=== PATIENT | female | born 1940 | race Caucasian/White ===

== ENCOUNTER 2021-09-20 09:09 | Inpatient (IN) | payer OTHER ==
[~2021-09-20] VITALS: Ht 160 cm; Wt 50.3 kg
--- NOTE | ~2021-09-20 | EMS ---
[place] [address] EMS Patient Care Report Name: JAYCOB HARMAN Room #: PRE M.R.#: [id number] Admission: Attend Phys: Discharge: Date of : 44 Report #: [id number] THIS REPORT FOR: //name// Report Transmitted: 09/20/2021 09:21 EMS Care Summary [place], [place]/[facility] Incident [id number] @ 09/20/2021 08:30 Incident Location [address] [place] Patient JAYCOB HARMAN Female, 81 Years 1940 Patient Address [address] [place] [address] Patient History Cancer, Unspecified,Hypertension (HTN),Depression, Patient Allergies No known allergies, Patient Medications Atorvastatin, Eliquis, Zofran, Acetaminophen, Chief Complaint SOA Disposition Transported No Lights/[place] Dispatch Reason Breathing Problem Transported To [facility] Narrative RESPONDED TO BREATHING PROBLEMS AT CORRECTION. UPON ARRIVAL PT FOUND STANDING OUTSIDE WITH P37 CREW. PT IS ALERT AND ORIENTED BUT WINDED WHEN SPEAKING SENTENCES. PT SAT ON COT AND SEATBELTS APPLIED. PT PLACED ON O2 [place] 6[place] [address] EMS Patient Care Report Name: JAYCOB HARMAN Room #: [facility] Luis Fernando#: [id number] Admission: Attend Phys: Discharge: Date of : 44 Report #: [id number] PT VITALS, IV AND 3LEAD OBTAINED. PT INITIALLY SAT 88 ON ROOM AIR AND INCREASED WITH O2. PT REPORTS FEELING SOA SINCE LAST NIGHT. PT REPORTS SOME RELIEF WITH O2 NC ON. PT TRANSPORTED TO [facility] DESPITE HIGH VOLUME STATUS AND PT BEING INFORMED OF HIGH VOLUME STATUS. PT TEAM LIFTED TO BED AND HANDRAILS UP. REPORT GIVEN TO NURSE. Initial Vitals @08:49P: 134, @08:47P: 132,CO: 1,SpO2: 88, @08:53P: 147,CO: 1,SpO2: 95, @08:51P: 146,CO: 3,SpO2: 98, @08:48P: 135,CO: 4,SpO2: 91, @08:53P: 121,R: 20,BP: 170/117,Pain: 0/10,GCS: 15,Glucose: 189,SpO2: 100,Revised Trauma: 12, @08:48P: 144,R: 20,BP: 196/138,CO: 2,SpO2: 92, @08:57P: 133, @08:56P: 142,R: 20,BP: 156/131,CO: 0,SpO2: 100, Assessments @08:45MENTAL:Time Oriented,Event Oriented,Place Oriented,Person Oriented,SKIN:HEENT:Head/Face: No Abnormalities,Neck/Airway: No Abnormalities,LUNG SOUNDS:General: No Abnormalities,Left Upper: No Abnormalities,Right Upper: No Abnormalities,Left Lower: No Abnormalities,Right Lower: No Abnormalities,ABDOMEN:General: No Abnormalities,Left Upper: No Abnormalities,Right Upper: No Abnormalities,Left Lower: No Abnormalities,Right Lower: No Abnormalities,PELVIS//GI:No Abnormalities,EXTREMITIES:Left Arm: No Abnormalities,Right Arm: No Abnormalities,Left Leg: No Abnormalities,Right Leg: No Abnormalities,PULSE:NEURO:@08:51MENTAL:Time Oriented,Event Oriented,Place Oriented,Person Oriented,SKIN:HEENT:Head/Face: No Abnormalities,Eyes: No Abnormalities,Neck/Airway: No Abnormalities,LUNG SOUNDS:General: No Abnormalities,Left Upper: No Abnormalities,Right Upper: No Abnormalities,Left Lower: No Abnormalities,Right Lower: No Abnormalities,ABDOMEN:General: No Abnormalities,Left Upper: No Abnormalities,Right Upper: No Abnormalities,Left Lower: No Abnormalities,Right Lower: No Abnormalities,PELVIS//GI:No Abnormalities,EXTREMITIES:Left Arm: No Abnormalities,Right Arm: No Abnormalities,Left Leg: No Abnormalities,Right Leg: No Abnormalities,PULSE:NEURO:No Abnormalities, Impression Shortness of breath Procedures @08:51 IV Therapy - Saline Lock 5cc (20 ga) Site: Antecubital-Left Response: UnchangedSucceeded @08:45 ALS Assessment Response: UnchangedSucceeded @08:50 3-Lead ECG Response: UnchangedSucceeded [address] [address] EMS Patient Care Report Name: JAYCOB HARMAN [facility].RPurnima#: [id number] Admission: Attend Phys: Discharge: Date of : 44 Report #: [id number] Timeline 08:28,Call Received 08:28,Dispatch Notified 08:30,Dispatched 08:31,En Route 08:39,On Scene 08:45,At Patient 08:45,ALS Assessment,Response: UnchangedSucceeded, 08:47,BP: / M,PULSE: 132,RR: R,SPO2: 88 Ox,ETCO2: ,BG: ,PAIN: ,GCS: , 08:48,BP: 196/138 M,PULSE: 144,RR: 20 R,SPO2: 92 Ox,ETCO2: ,BG: ,PAIN: ,GCS: , 08:48,BP: / M,PULSE: 135,RR: R,SPO2: 91 Ox,ETCO2: ,BG: ,PAIN: ,GCS: , 08:49,BP: / M,PULSE: 134,RR: R,SPO2: Ox,ETCO2: ,BG: ,PAIN: ,GCS: , 08:50,3-Lead ECG,Response: UnchangedSucceeded, 08:51,BP: / M,PULSE: 146,RR: R,SPO2: 98 Ox,ETCO2: ,BG: ,PAIN: ,GCS: , 08:51,IV Therapy - Saline Lock 5cc 20 ga Site: Antecubital-Left,Response: UnchangedSucceeded, 08:53,BP: / M,PULSE: 147,RR: R,SPO2: 95 Ox,ETCO2: ,BG: ,PAIN: ,GCS: , 08:53,BP: 170/117 M,PULSE: 121,RR: 20 R,SPO2: 100 Ox,ETCO2: ,B,PAIN: 0,GCS: 15, 08:54,Depart Scene 08:56,BP: 156/131 M,PULSE: 142,RR: 20 R,SPO2: 100 Ox,ETCO2: ,BG: ,PAIN: ,GCS: , 08:57,BP: / M,PULSE: 133,RR: R,SPO2: Ox,ETCO2: ,BG: ,PAIN: ,GCS: , 09:05,At Destination 09:21,Call Closed Disclaimer v1.1 Copyright 2020 [employer] This EMS Care Summary contains data elements from the applicable legal record (which may be displayed differently). It is designed to provide pertinent information for the following purposes: continuity of care, clinical quality, and state data reporting. The complete legal record is available to ED staff and administrators of the receiving hospital in [facility]'s Patient Tracker. All data is provided "as is."
[2021-09-20 09:10] VITALS: BP 187/137
[2021-09-20 09:32] LABS: ABSOLUTE NEUTROPHILS 6.7 thou/uL (1.4-8.2); BASOPHILS 0.3 % (0.0-2.0); EOSINOPHILS 1.1 % (0.0-3.0); HEMATOCRIT 33.2 % (37.0-47.0); HEMOGLOBIN 11.1 gm/dL (12.0-15.0); LYMPHOCYTES 7.9 % (24.0-44.0); MCH 39.4 pg (26.0-34.0); MCHC 33.3 g/dL (28.0-37.0); MCV 118.2 fL (80.0-100.0); MONOCYTES 4.7 % (1.0-8.0); PLATELET COUNT 361 thou/uL (150-400); RBC 2.81 mil/uL (4.20-5.00); WBC 7.8 thou/uL (4.0-11.0)
[2021-09-20] MEDS ORDERED: HYDREA 500 MG500 M1 PO (09:41)
[2021-09-20] MEDS ORDERED: ZOFRAN4 MG PO (09:42)
[2021-09-20] MEDS ORDERED: COREG12.5 MG PO (09:43)
[2021-09-20] MEDS ORDERED: LIPITOR40 MG PO (09:44)
[2021-09-20] MEDS ORDERED: ELIQUIS5 MG PO (09:44)
[2021-09-20] MEDS ORDERED: FAMOTIDINE 20 M20 MG PO (09:45)
[2021-09-20] MEDS ORDERED: FLOMAX0.4 MG PO (09:46)
[2021-09-20] MEDS ORDERED: IPRAT-ALBUT 0.5-3 ML INH (09:46)
[2021-09-20] MEDS ORDERED: MIDODRINE HCL 55 M1 PO (09:47)
[2021-09-20 09:48] LABS: BE(vivo) 2.5 mmol/L (-2 to +3); HCO3 27.6 mmol/L (22.0-26.0); PCO2 44.5 mmHg (35.0-45.0); PO2 79.9 mmHg (80.0-100.0); sO2 95.9 % (92.0-98.0)
[2021-09-20] MEDS ORDERED: OMEPRAZOLE 20 M20 M1 PO (09:48)
[2021-09-20] MEDS ORDERED: SUPER THERAVIT1 EACH PO (09:48)
[2021-09-20 10:14] LABS: CALCIUM 7.1 mg/dL (8.5-10.1); CREATININE 0.5 mg/dL (0.6-1.0); POTASSIUM 3.2 mmol/L (3.5-5.1)
[2021-09-20 10:19] LABS: ALBUMIN 2.9 g/dL (3.4-5.0); TOTAL BILIRUBIN 0.5 mg/dL (0.2-1.0); TOTAL PROTEIN 5.3 g/dL (6.4-8.2)
[2021-09-20 11:27] LABS: ANISOCYTOSIS 1+; MACROCYTES 1+; POIKILOCYTOSIS 1+
[2021-09-20 11:36] LABS: URINE BILIRUBIN NEGATIVE (Negative); URINE BLOOD TRACE (Negative); URINE CLARITY SL CLOUDY; URINE COLOR YELLOW; URINE GLUCOSE-RANDOM* NEGATIVE (Negative); URINE KETONES NEGATIVE (Negative); URINE PROTEIN (DIPSTICK) TRACE (Negative); URINE UROBILINOGEN 0.2 E.U./dl (0.2-1.0)
[2021-09-20 11:37] LABS: URINE LEUKOCYTES-REFLEX 1+ (Negative); URINE NITRITE-REFLEX POSITIVE (Negative)
[2021-09-20 11:45] LABS: CASTS None Seen /LPF (None Seen); SQUAMOUS 0-3 Few /LPF (0-3)
[2021-09-20 11:46] LABS: BACTERIA-REFLEX >30 Many /HPF (None Seen); CRYSTALS None Seen /LPF (None Seen); URINE RBC 3-10 Few /HPF (NONE SEEN)
--- NOTE | 2021-09-20 12:54 | EKG ---
[place] [address] [facility] [place] [address] ELECTROCARDIOGRAM REPORT Name: JAYCOB HARMAN [facility] [id number] Admission: 09/20/21 Attend Phys: Discharge: Date of : 44 Report #: [id number] [facility] ED Test Date: 2021-09-20 Test Time: 09:17:45 Pat Name: JAYCOB HARMAN Department: Room: Gender: F Rim Buster: prabha : 1940 Requested By: Jenny Long Order Number: [id number] MD: Bijan Blake Measurements Intervals [place] Rate: 157 P: VT: QRS: 88 QRSD: 91 T: 71 QT: 291 QTc: 471 Interpretive Statements Atrial fibrillation with rapid V-rate Borderline right axis deviation Borderline low voltage, extremity leads Anteroseptal infarct, old Repolarization abnormality, prob rate related No previous ECG available for comparison Electronically Signed On 09-20-2021 12:54:20 ROBOTIC TECHNICIAN by Bijan Blake [email or web address] <ELECTRONICALLY SIGNED> By: Bijan Blake MD, [facility] 09/20/21 1254 0917 6 Bijan Blake MD, FACC /EPI
[2021-09-20 13:28] VITALS: BP 160/90
--- NOTE | 2021-09-20 13:49 | NUR ---
REPORT ATTEMPTED AT THIS TIME. RN OFF FLOOR, RN TO CALL BACK
[2021-09-20 14:28] VITALS: BP 146/93
--- NOTE | 2021-09-20 14:59 | 2DMMODE ---
[facility] [place] [address] 2 D/M-MODE ECHOCARDIOGRAM Name: JAYCOB HARMAN Room #: 219-P ADM IN M.R.#: [id number] Admission: 09/20/21 Attend Phys: Deo Flores MD Discharge: Date of : 44 Report #: [id number] THIS REPORT FOR: cc: Nagi Kaplan MD, Ramilo MD Park, Jin S. MD ~ APPROVED REPORT Study performed: 09/20/2021 14:47:06 EXAM: Comprehensive 2D, Doppler, and color-flow Echocardiogram Patient Location: ER Status: routine BSA: 1.54 HR: 80 bpm BP: 160/90 mmHg Rhythm: Atrial Fibrillation Other Information Study Quality: Adequate Technically limited study due to heavy breathing, unable to position, patient on BiPAP. Indications Short of breath, COPD exacerbation, Afib, CHF. Hx: CABG. 2D Dimensions RVDd: 26.42 mm IVSd: 7.05 (7-11mm) LVOT Diam: 18.37 (18-24mm) LVDd: 38.91 mm PWd: 7.45 (7-11mm) LVDs: 28.86 (25-40mm) Left Atrium: 39.69 (27-40mm) Aortic Root: 33.82 mm Volumes Left Atrial Volume (Systole) Single Plane 4CH: 39.20 mL Single Plane 2CH: 49.77 mL LA ESV Index: 30.00 mL/m2 Aortic Valve AoV Peak Beto.: 1.03 m/s [facility] [address] [place] [address] 2 D/M-MODE ECHOCARDIOGRAM Name: JAYCOB HARMAN Room #: 219-P ADM IN M.R.#: [id number] Admission: 09/20/21 Attend Phys: Deo Flores MD Discharge: Date of : 44 Report #: [id number] AO Peak Gr.: 4.20 mmHg LVOT Max P.11 mmHg LVOT Max V: 0.73 m/s SARBJIT Vmax: 1.88 cm2 Mitral Valve MV Decel. Time: 160.89 ms MV E Max Beto.: 0.99 m/s Pulmonary Valve PV Peak Beto.: 0.67 m/s PV Peak Gr.: 1.80 mmHg Tricuspid Valve TR Peak Beto.: 2.45 m/s RAP Estimate: 15.00 mmHg TR Peak Gr.: 24.36 mmHg PA Pressure: 39.00 mmHg Left Ventricle The left ventricle is normal size. There is normal LV segmental wall motion. There is normal left ventricular wall thickness. Left ventricular systolic function is normal. LVEF is 55%. This study is not technically sufficient to allow evaluation of the LV diastolic function due to atrial fibrillation. Right Ventricle The right ventricle is normal size. The right ventricular systolic function is normal. Atria The left atrium size is normal. The right atrium size is normal. Aortic Valve The Aortic valve is moderately sclerotic. Mild to moderate aortic regurgitation. There is no aortic valvular stenosis. Mitral Valve The mitral valve is normal in structure. Mild mitral regurgitation. Tricuspid Valve The tricuspid valve is normal in structure. Mild tricuspid regurgitation. Estimated PAP is 35 mmHg. Pulmonic Valve Pulmonic valve is not well visualized. Mild pulmonic regurgitation. [facility] [address] [place] [address] 2 D/M-MODE ECHOCARDIOGRAM Name: JAYCOB HARMAN Room #: 219- ADM IN .R.#: [id number] Admission: 09/20/21 Attend Phys: Deo Flores MD Discharge: Date of : 44 Report #: [id number] Great Vessels The aortic root is normal in size. Ascending aorta is not well visualized. IVC is dilated and collapses <50% with inspiration. Pericardium There is no pericardial effusion. <Conclusion> The left ventricle is normal size. There is normal left ventricular wall thickness. Left ventricular systolic function is normal. The right ventricle is normal size. The left atrium size is normal. Mild to moderate aortic regurgitation. Mild mitral regurgitation. Mild tricuspid regurgitation. Estimated PAP is 35 mmHg. <ELECTRONICALLY SIGNED> By: Massimo Schulte MD 09/20/21 1459 1459 1459 Massimo Schulte MD /INF
--- NOTE | 2021-09-20 15:14 | NUR ---
PT ORIENTED TO ROOM AND UNIT, BED LOW AND LOCKED, SIDE RAILS UP X3, CALL LIGHT IN REAC, TELE APPLIED, WILL COTINUE TO ASSESS.
[2021-09-20 16:30] VITALS: BP 146/93
--- NOTE | 2021-09-20 18:21 | NUR ---
CONTINUE CARDIZEM GTT TONIGHT PT AFIB RATE CONTROLLED NOW. TAKING IN GOOD PO AND WAS ABLE TO TITRATE OXYGEN VIA NC DOWN TO 7L.
[2021-09-20 19:25] VITALS: BP 125/60
[2021-09-20 20:00] VITALS: BP 125/60
[2021-09-21] VITALS (8 sets, daily range): BP systolic 100–140; BP diastolic 51–74
--- NOTE | 2021-09-21 02:50 | NUR ---
ASSUMED PT CARE AT 1900. ALERT AND ORIENTED, REMAINS AFIB HR CONTROLLED IN THE 70S, CARDIZEM TITRATED PER PROTOCOL NOW AT 5ML/HR, DENIES PAIN OR SOA, O2 AT 4L NC, O2 SAT IN THE UPPER 90S, ASSESSMENTS CHARTED, PRIGRESSING WELL TOWARDS POC
[2021-09-21 11:35] LABS: ALBUMIN 3.6 g/dL (3.4-5.0); ANION GAP 3 mmol/L (7-16); BUN 17 mg/dL (7-18); CHLORIDE 101 mmol/L (98-107); CHOLESTEROL 130 mg/dL (<200); CO2 36 mmol/L (21-32); CREATININE 0.9 mg/dL (0.6-1.0); GLUCOSE 145 mg/dL (74-106); HDL CHOLESTEROL 58 mg/dL (>40); LDL CHOLESTEROL 64 mg/dL (<100); MAGNESIUM 1.6 mg/dL (1.8-2.4); POTASSIUM 3.8 mmol/L (3.5-5.1); SGOT 63 U/L (15-37); SGPT 135 U/L (30-65); SODIUM 140 mmol/L (136-145); TC:HDL 2.2 Ratio (Not establshd); TOTAL BILIRUBIN 0.6 mg/dL (0.2-1.0); TOTAL PROTEIN 6.5 g/dL (6.4-8.2); TRIGLYCERIDE 42 mg/dL (<150); VLDL 8 mg/dL (<40)
[2021-09-21 11:58] LABS: HEMATOCRIT 30.8 % (37.0-47.0); HEMOGLOBIN 10.3 gm/dL (12.0-15.0); MCHC 33.4 g/dL (28.0-37.0); MCV 116.8 fL (80.0-100.0); RBC 2.63 mil/uL (4.20-5.00); RDW 16.9 % (10.5-14.5); WBC 5.7 thou/uL (4.0-11.0)
--- NOTE | 2021-09-21 15:31 | NUR ---
TOOK OVER CARE OF THIS PATIENT AT 0700. PATIENT SLEEPING DURING SHIFT REPORT. PATIENT AXOX4. PATIENT WEARING 3 L NC; BECOMES SOA WITH EXERTION. PATIENT DENIES CHEST PAIN. AMBULATES X1 ASSIST. FALL PRECAUTIONS IN PLACE. USES CALL LIGHT APPROPRITLEY. WILL CONTINUE TO MONITOR.
--- NOTE | 2021-09-21 15:55 | NUR ---
Met with patient she is A/Ox4. She resides at Assisted living at [facility]. Admits with resp failure/CHF. Patient reports she does not wear oxygen at Assisted Living. Was unable to sp with staff at Assisted living. Faxed updated clinical. Patient reports Michael Rose [phone] is DPOA. She is a long time friend. Patient evaled and accepted to . Patient thinking if she would transfer to N.
--- NOTE | 2021-09-22 05:03 | NUR ---
ASSUMED PT CARE AT 1900. ALERT AND ORIENTEDX3, DENIES PAIN OR SOB, REMAINS AFIB ON TELE WITH RATES IN THE 90S WITH OCCASSIONAL HR UPTO 140 BUT NOT SUSTAINED, ASSESSMENTS CHARTED, MEDS GIVEN PER JAN, REMAINED STABLE THROUGH THE NIGHT, REMAINS INCONTINENT OF BLADDER, NO BM THIS SHIFT, PROGRESSING TOWARDS POC
[2021-09-22 05:20] VITALS: BP 123/68
[2021-09-22 07:28] VITALS: BP 122/64
[2021-09-22 12:25] VITALS: BP 132/75
[2021-09-22 16:00] VITALS: BP 107/45
--- NOTE | 2021-09-22 18:21 | NUR ---
Patient is alert and oriented x4 this shift. Patient is continuing to be on a mechanical chopped diet. Patients lung sounds are clear but diminished in the bases. She makes no complaints of shortness of breath or difficulty breathing. Patient is CC/ Tele and she is in AFIB with her heart rate in the 90s. Patients cardiac medications were adjusted this shift. Patient reports that she has not had a bowel movement in a few days and this is causing her concern. Patient was given a one time dose of Milk of Magnesia per provider. Patient has not had results from this dosing at this time. Patient is incontinent of both BM and Urine. Patient is encouraged to use the restroom every time this play writer is in her room. Patient has no skin issues to report at this time. Patient has a 20g IV in her right AC that is patent. Patient will continue to be monitored.
[2021-09-22 19:29] VITALS: BP 117/52
--- NOTE | 2021-09-23 03:46 | NUR ---
Assumed pt care at 1900. Pt is alert and oriented. No sign of distress noted in pt. Pt is stabLE. Assessment completed and documented. Fall precaution in place. Schedled meds administered to pt. No acute event through the night. Continue to monitor. No further needs at this time.
[2021-09-23 04:49] VITALS: BP 106/54
[2021-09-23 08:00] VITALS: BP 128/72
--- NOTE | 2021-09-23 11:12 | NUR ---
PER HOSPITALIST, PT APPROPRIATE FOR DC WITH HH ON MONDAY 09/24. THERAPIES WILL FOLLOW UP ON FRIDAY TO ENSURE PT IS APPROPRIATE FOR RETURN TO ASSISTED LIVING WITH HOME HEALTH
[2021-09-23 12:21] VITALS: BP 137/69
[2021-09-23 16:00] VITALS: BP 104/66
--- NOTE | 2021-09-23 18:51 | NUR ---
Pt has been resting in bed throughout shift. No complaints other than being unable to have a bowel movement. ordered magnesium citrate which is at bedside with the pt. She is feeling anxious about taking it so late d/t possiblity of having an accident during the night. Nurse offered reassurance. No other concerns.
[2021-09-23 20:40] VITALS: BP 128/72
[2021-09-24] VITALS (8 sets, daily range): BP systolic 122–137; BP diastolic 53–88
--- NOTE | 2021-09-24 01:00 | NUR ---
ASSUMED PT CAR AT 1900.PT WAS OBSERVED LYING ON HER BED WITH HER EYES CLOSED AT SHIFT CHANGE.PT DENIED PAIN/N/V SO FAR.PT CONT ON 2L/NC.PT ABLE TO MAKE HER NEEDS KNOWN.FREQUENT CHECKS MAINTAINED.CALL LIGHT ROSALIA ESPINOSA.
[2021-09-24] MEDS ORDERED: CEFUROXIME250 MG PO (08:47)
[2021-09-24] MEDS ORDERED: DILTIAZEM 24HR300 M2 PO (08:47)
[2021-09-24] MEDS ORDERED: PREDNISONE 20 M20 M1 PO (08:49)
[2021-09-24] MEDS ORDERED: IPRAT-ALBUT 0.5-3 ML INH (08:50)
--- NOTE | 2021-09-24 15:16 | NUR ---
Patient resides at [facility] assisted living. Patient not accepted to [facility] as she is too high level. Patient with orders for dc home health care. Sp with Windy at [facility] who reports they need to assess patient prior to return to assisted living. Kathy from [facility] assessing patient at this time. Faxed orders, chart to be copied. [facility] can accept. Patient with need for home oxygen. Faxed clinical to [facility]. Left message for KIMBERLI Rodriguez. Await decision of facility and patient.
--- NOTE | 2021-09-24 19:24 | NUR ---
Pt has been A&Ox4 throughout shift. She has been on 2L O2 at rest and increased to 4L when working with PT. She was able to sit in chair for a few hours during shift and was also able to ambulate around the unit with PT. The plan was to discharge today (09/24) but d/t changes in where she will be going so the plan is for discharge tomorrow (09/25). Someone from her assisted living facility came to talk to her about moving over to the longterm side of the facility. Case management was consulted.
[2021-09-25 04:18] VITALS: BP 129/77
[2021-09-25 08:13] VITALS: BP 140/81
[2021-09-25] MEDS ORDERED: METOPROLOL SUCC50 MG PO (08:29)
[2021-09-25 11:50] VITALS: BP 134/73
--- NOTE | 2021-09-25 12:23 | NUR ---
REPORT CALLED TO [facility] SPOKE WITH COY MADDEN. SHE STATED NO ADDITIONAL QUESTIONS, GAVE HER OUR CALL BACK NUMBER.
--- NOTE | 2021-09-25 13:40 | NUR ---
Spoke with Ioana at [facility] dc at 1330 via wc van to [facility]. refaxed orders. chart copied. Notified KIMBERLI Rodriguez. No further needs
--- NOTE | 2021-09-25 14:05 | NUR ---
PT DISCHARGED TO [facility], REPORT CALLED SEE NOTES. TRANSPORT IS TAKEN HER OUT OF THE BUILDING VIA WHEELCHAIR.
== END 2021-09-25 14:30 | DRG 291 ==
LOC: ER 09:09 → 2N 10:55 → EROBS 10:55 → 2N 14:10
PROVIDERS: Student in an Organized Health Care Education/Training Program; ADMIT Internal Medicine; ATTEND Internal Medicine
DX: I11.0 Hypertensive heart disease with heart failure (principal); I50.31 Acute diastolic (congestive) heart failure; J96.01 Acute respiratory failure with hypoxia; N39.0 Urinary tract infection, site not specified; I48.92 Unspecified atrial flutter; I48.91 Unspecified atrial fibrillation; Z20.822 Contact with and (suspected) exposure to COVID-19; E78.5 Hyperlipidemia, unspecified; K21.9 Gastro-esophageal reflux disease without esophagitis; F32.9 Major depressive disorder, single episode, unspecified; R33.9 Retention of urine, unspecified; I25.10 Atherosclerotic heart disease of native coronary artery without angina pectoris; R53.81 Other malaise; E87.6 Hypokalemia; D64.9 Anemia, unspecified; J43.9 Emphysema, unspecified; K59.00 Constipation, unspecified; Z79.01 Long term (current) use of anticoagulants; Z92.21 Personal history of antineoplastic chemotherapy; Z87.891 Personal history of nicotine dependence; Z95.1 Presence of aortocoronary bypass graft; Z79.899 Other long term (current) drug therapy
CPT/HCPCS: 10081

== ENCOUNTER → 2021-10-23 | Outpatient (CLI) | payer OTHER ==
[~2021-10-23] MED LIST: CEFUROXIME250 MG PO; COREG12.5 MG PO; DILTIAZEM 24HR300 M2 PO; ELIQUIS5 MG PO; FAMOTIDINE 20 M20 MG PO; FLOMAX0.4 MG PO; HYDREA 500 MG500 M1 PO; IPRAT-ALBUT 0.5-3 ML INH; LIPITOR40 MG PO; METOPROLOL SUCC50 MG PO; MIDODRINE HCL 55 M1 PO; OMEPRAZOLE 20 M20 M1 PO; PREDNISONE 20 M20 M1 PO; SUPER THERAVIT1 EACH PO; ZOFRAN4 MG PO
== END ==
LOC: SJCVC 13:36
PROVIDERS: ATTEND Internal Medicine Cardiovascular Disease
DX: R94.31 Abnormal electrocardiogram [ECG] [EKG] (principal); I45.4 Nonspecific intraventricular block; I25.10 Atherosclerotic heart disease of native coronary artery without angina pectoris; I48.91 Unspecified atrial fibrillation; I11.0 Hypertensive heart disease with heart failure; I50.9 Heart failure, unspecified; E78.5 Hyperlipidemia, unspecified; J44.9 Chronic obstructive pulmonary disease, unspecified; Z79.899 Other long term (current) drug therapy; Z87.891 Personal history of nicotine dependence; K21.9 Gastro-esophageal reflux disease without esophagitis; Z95.1 Presence of aortocoronary bypass graft